=== PATIENT | male | born 1970 | race Two or more races ===

== ENCOUNTER 2022-02-10 16:16 | Emergency (ER) | payer OTHER ==
[~2022-02-10] VITALS: Ht 180.3 cm; Wt 112.9 kg
== END 2022-02-10 19:45 | disposition home or self-care (01) ==
LOC: ER 16:16
DX: J06.9 Acute upper respiratory infection, unspecified (principal); Z20.822 Contact with and (suspected) exposure to COVID-19

== ENCOUNTER 2022-07-07 23:25 | Emergency (ER) | payer OTHER ==
[~2022-07-07] VITALS: Ht 180.3 cm; Wt 111.1 kg
== END 2022-07-08 | disposition left against medical advice (07) ==
LOC: ER 23:25
DX: S01.81XA Laceration without foreign body of other part of head, initial encounter (principal); Y08.89XA Assault by other specified means, initial encounter; Y93.89 Activity, other specified; Y92.9 Unspecified place or not applicable; Y99.9 Unspecified external cause status